=== PATIENT | male | born 1985 | race Caucasian/White ===

== ENCOUNTER → 2019-01-04 | Outpatient (CLI) | payer OTHER | END | disposition home or self-care (01) | LOC: RADUSWWP 07:30 | PROVIDERS: ATTEND Family Medicine | DX: Z53.9 Procedure and treatment not carried out, unspecified reason (principal) ==

== ENCOUNTER → 2019-01-10 | Outpatient (CLI) | payer OTHER ==
--- NOTE | 2019-01-10 09:22 | US ---
EXAMINATION TYPE: US abdomen complete DATE OF EXAM: 01/10/2019 COMPARISON: NONE CLINICAL HISTORY: R10.31 RLQ ABD PAIN,R14.0 ABD BLOATING. Bloating, NPO EXAM MEASUREMENTS: Liver Length: 16.6 cm Gallbladder Wall: 0.1 cm CBD: 0.5 cm Spleen: 12.6 cm Right Kidney: 9.6 x 4.5 x 5.5 cm Left Kidney: 11.0 x 5.3 x 5.7 cm Limited exam due to overlying bowel gas Pancreas: Obscured by bowel gas Liver: wnl Gallbladder: echogenic lesion seen adjacent to wall = 0.3 x 0.2 cm Evidence for sonographic Gallardo's sign: neg CBD: wnl Spleen: wnl Right Kidney: No hydronephrosis or masses seen Left Kidney: No hydronephrosis or masses seen Upper IVC: wnl Abd Aorta: Mid portion obscured by overlying bowel gas The liver is homogenous. The intrahepatic portion of the IVC and proximal abdominal aorta are within normal limits. There is no evidence of cholelithiasis. Common bile duct is unremarkable. The visu alized portions of the pancreas are homogenous. The spleen is unremarkable. Kidneys are symmetric a nd free of hydronephrosis. No renal lesions are seen. IMPRESSION: 1. Small gallbladder polyp.
== END | disposition home or self-care (01) ==
LOC: RADUSWWP 08:11
PROVIDERS: ATTEND Family Medicine
DX: K82.4 Cholesterolosis of gallbladder (principal)
CPT/HCPCS: 76700

== ENCOUNTER → 2022-01-11 | Outpatient (CLI) | payer OTHER ==
--- NOTE | 2022-01-11 10:28 | XR ---
EXAMINATION TYPE: XR sinus DATE OF EXAM: 01/11/2022 10:21 AM CLINICAL INDICATION:Male, 36 years old with history of R09.81 Sinus congestion; COMPARISON: None TECHNIQUE: 3 views the sinuses frontal, lateral and Cameron. FINDINGS: Radiographic evaluation of the orbits fail to demonstrate evidence of an orbital fracture. There is n o radiopaque foreign body identified. The adjacent paranasal sinuses demonstrate opacification of the right maxillary sinus with comparison to the left. The nasal bridge appears intact. The mandible jackson ears intact. Mastoid air cells are well aerated. IMPRESSION: Mild paranasal sinus disease most pronounced in the right maxillary sinus. A CT sinus is recommended complete evaluation of the paranasal sinuses.
== END | disposition home or self-care (01) ==
LOC: RADXRMAIN 10:06
PROVIDERS: ATTEND Family Medicine
DX: J32.8 Other chronic sinusitis (principal)
CPT/HCPCS: 70220

== ENCOUNTER → 2023-03-15 | Outpatient (CLI) | payer OTHER ==
--- NOTE | 2023-03-15 07:20 | US ---
EXAMINATION TYPE: Ultrasound MSK left ankle, Achilles tendon DATE OF EXAM: 03/15/2023 COMPARISON: NONE CLINICAL INDICATION: Male, 37 years old with history of M76.60 ACHILLES TENDINITIS; TECHNIQUE: Multiple sonographic images of the posterior ankle are obtained. FINDINGS: The Achilles tendon appears to have normal caliber and maintained fibrillar architecture from the victor hugo tendinous junction to the calcaneal insertion. Nonspecific trace effusion in the retrocalcaneal bursa . Additional scanning performed along the plantar aspect due to patient's complaint of pain. There is n ormal appearance to the origin of the plantar fascia varying in thickness between 2 and 3 mm. IMPRESSION: Normal Achilles tendon. No appreciable tendinosis or tear. The plantar fascia is also scanned due to patient complaint and also appears normal. If symptoms persist, consider MRI.
== END | disposition home or self-care (01) ==
LOC: RADUSWWP 06:52
PROVIDERS: ATTEND Family Medicine
DX: M76.60 Achilles tendinitis, unspecified leg (principal)